=== PATIENT | female | born 1945 | race Caucasian/White ===

== ENCOUNTER 2016-08-22 11:58 | Emergency (ER) | payer MEDICARE | END 2016-08-22 13:38 | disposition home or self-care (01) | LOC: D.ER 11:58 | DX: S09.90XA Unspecified injury of head, initial encounter (principal); W01.0XXA Fall on same level from slipping, tripping and stumbling without subsequent striking against object, initial encounter; Y93.89 Activity, other specified; Y92.019 Unspecified place in single-family (private) house as the place of occurrence of the external cause; Z79.01 Long term (current) use of anticoagulants; Z86.718 Personal history of other venous thrombosis and embolism ==

== ENCOUNTER 2018-09-21 19:06 | Inpatient (IN) | payer MEDICARE ==
[~2018-09-21] VITALS: Ht 160 cm; Wt 71.2 kg
--- NOTE | ~2018-09-21 | HEMODYNAMI ---
PATIENT:CORTNEY TEIXEIRA MEDICAL RECORD: [id number] : [birth year] LOCATION:[facility] [address] [id number] ADMISSION DATE: 09/21/18 Generatedon:09/22/20183:37 Patient name: CORTNEY TEIXEIRA Patient #: [id number] SSN: : 1945 Date of study: 09/22/2018 Page: Of Hemodynamic Procedure Report Patient Data Patient Demographics Procedure consent was obtained First Name: CORTNEY Gender: Female Last Name: PUNEET : 1945 Patient #: [id number] Age: 73 year(s) Race: Unknown Additional ID: [id number] Contact details [address]: [address] [place] [address] State: [place] City: [place] Zip code: [address] Past Medical History Allergies: No known allergies Admission Admission Data Admission Date: 09/21/2018 Admission Time: 21:54 Room #: D.2311 Height (in.): 63 BSA: 1.8 (m2) Height (cm.): 160.02 BMI: 29.76 (kg/m2) Weight (lbs.): 168 Weight (kg.): 76.2 Procedure Procedure Types Cath Procedure Peripheral Cath Diagnostic Procedure Associate Faculty Peripheral Procedures Venography Extremity Left Lower Ext. Venagram Procedure Description Procedure Date Procedure Date: 09/22/2018 Procedure Start Time: 1:30 Procedure Staff Name Function Juan Jose Hernandez MD Performing Physician Evita Haynes RT Fisher Lampara Net Sierra Garcia RN Nurse Kamran Stallworth RT Scrub Procedure Data Cath Procedure Fluoroscopy Diagnostic fluoroscopy Total fluoroscopy Time: time: 20.8 min 20.8 min Diagnostic fluoroscopy Total fluoroscopy dose: dose: 1662 mGy 1662 mGy Contrast Material Contrast Material Type Amount (ml) Isovue 300 130 Procedure Medications Medication Administration Route Dosage Versed I.V. 1 mg Fentanyl I.V. 50 mcg Heparin Flush Bag added to field 2 bags (1000units/500ml NS) Lidocaine 1% added to field 20 Fentanyl I.V. 25 mcg Versed I.V. 0.5 mg Heparin Bolus 3000 units Versed I.V. 0.5 mg Fentanyl I.V. 25 mcg Versed I.V. 0.5 mg Fentanyl I.V. 25 mcg Heparin Bolus I.V. 1000 units Fentanyl I.V. 25 mcg Versed I.V. 0.5 mg Versed I.V. 0.5 mg Hemodynamics Rest BSA: 1.8 (m2) O2 Consumption: Estimated: 165.75 (ml/min) O2 Consumption indexed: Estimated:92.08 (ml/min/m) Heart Rate: 70 (bpm) Snapshots Pre Cath Intra NCS Post Cath Vital Signs Time Heart Resp SPO2 etCO2 NIBP (mmHg) Rhythm Pain Sedation Rate (ipm) (%) (mmHg) Status Level (bpm) 1:25:23 69 10 100 38.2 125/84(104) NSR 0 (11) 10(A) , No pain 1:29:35 77 39 97 20.2 115/66(84) NSR 0 (11) 8(A) , No pain 1:33:45 70 8 95 15 105/66(82) NSR 0 (11) 8(A) , No pain 1:37:49 78 15 92 29.2 107/71(83) NSR 0 (11) 8(A) , No pain 1:41:56 79 18 91 30 115/64(83) NSR 0 (11) 8(A) , No pain 1:46:04 76 16 98 32.9 124/74(99) NSR 0 (11) 8(A) , No pain 1:50:14 71 18 98 35.9 116/76(100) NSR 0 (11) 8(A) , No pain 1:54:22 72 18 96 36.7 116/70(86) NSR 0 (11) 8(A) , No pain 1:58:26 64 20 93 36 131/82(110) NSR 0 (11) 8(A) , No pain 2:02:38 64 18 95 36.7 137/77(107) NSR 0 (11) 8(A) , No pain 2:06:52 61 19 97 35.9 142/80(112) NSR 0 (11) 8(A) , No pain 2:11:08 56 19 96 35.2 140/81(109) NSR 0 (11) 8(A) , No pain 2:15:20 59 19 96 32.9 133/87(111) NSR 0 (11) 8(A) , No pain 2:19:38 66 20 92 30.7 99/63(84) NSR 0 (11) 8(A) , No pain 2:24:33 60 19 94 34.5 144/76(107) NSR 0 (11) 8(A) , No pain 2:28:49 58 20 96 31.5 154/82(117) NSR 0 (11) 8(A) , No pain 2:33:09 60 14 98 35.2 140/81(113) NSR 0 (11) 8(A) , No pain 2:37:23 57 16 97 37.4 133/81(108) NSR 0 (11) 8(A) , No pain 2:41:37 60 16 97 37.4 137/76(112) NSR 0 (11) 8(A) , No pain 2:45:53 60 15 95 39 129/73(105) NSR 0 (11) 8(A) , No pain 2:50:05 61 15 97 37.5 123/75(102) NSR 0 (11) 8(A) , No pain 2:54:06 58 18 95 36 116/70(101) NSR 0 (11) 8(A) , No pain 2:58:21 60 17 96 37.4 136/62(110) NSR 0 (11) 8(A) , No pain 3:03:17 60 15 97 35.2 203/183(187) NSR 0 (11) 8(A) , No pain 3:05:22 66 17 97 32.9 139/86(113) NSR 0 (11) 8(A) , No pain 3:09:40 62 17 99 32.9 122/68(106) NSR 0 (11) 8(A) , No pain 3:13:48 61 16 99 38.2 130/80(114) NSR 0 (11) 8(A) , No pain 3:17:58 60 17 99 33.7 145/85(115) NSR 0 (11) 8(A) , No pain 3:22:10 61 16 100 35.2 153/96(136) NSR 0 (11) 8(A) , No pain 3:26:26 62 15 100 34.4 156/87(131) NSR 0 (11) 8(A) , No pain 3:30:26 37.5 No Cuff NSR 0 (11) 8(A) , No pain 3:34:26 0 No Cuff NSR 0 (11) 8(A) , No pain Medications Time Medication Route Dose Verified Delivered Reason Notes Effect iveness by by 1:29:08 Versed I.V. 1 mg Juan Jose Sierra for BurdaJose RN sedation 1:29:21 Fentanyl I.V. 50 Juan Jose Sierra for mcg Jose Hernandez RN sedation 1:29:41 Heparin Flush added 2 Juan Jose Ingram used for Bag to bags Mary Hernandez MD procedure (1000units/500ml field DELGADO NS) 1:30:04 Lidocaine 1% added 20ml Juan Jose Ingram used for to vial Mary Hernandez MD procedure field DELGADO 1:49:43 Fentanyl I.V. 25 Juan Jose Sierra for mcg AshleeaJose RN sedation 1:49:54 Versed I.V. 0.5 Juan Jose Sierra for mg BurdaJose RN sedation 1:55:07 Heparin Bolus 3000 Juan Jose Sierra used for units Jose Hernandez RN procedure 2:19:50 Versed I.V. 0.5 Juan Jose Sierra for mg BurdaJose RN sedation 2:20:01 Fentanyl I.V. 25 Juan Jose Sierra for mcg AshleeaJose RN sedation 2:38:47 Versed I.V. 0.5 Juan Jose Sierra for mg BurdaJose RN sedation 2:38:57 Fentanyl I.V. 25 Juan Jose Sierra for mcg Burda, Jose RN sedation 2:55:57 Heparin Bolus I.V. 1000 Juan Jose Sierra used for units Jose Hernandez cement or concrete finishing supervisor 3:00:24 Fentanyl I.V. 25 Juan Jose Sierra for mcg Burda, Jose RN sedation 3:00:32 Versed I.V. 0.5 Juan Jose Sierra for mg Burda, Jose RN sedation 3:10:46 Versed I.V. 0.5 Juan Jose Sierra for mg Burda, Jose RN sedation MD Procedure Log Time Note 0:50:38 Patient Height : 63 inches 0:50:42 Patient Weight : 168 lbs 0:51:11 Use device set IR Diagnostic 0:52:09 DOC .035 wire (J55658) opened to sterile field. 0:52:10 Micropuncture VSI 4FR kit opened to sterile field. 0:52:11 SHEATH 5FR [place] (SQQ110) opened to sterile field. 0:52:12 Tegaderm 4 x 4 (1626W) opened to sterile field. 0:52:13 Sterile Angiographic Pack opened to sterile field. 0:52:14 Bag Decanter (2002S) opened to sterile field. 0:52:23 Time tracking: Call back (After hours or weekends) 0:52:46 Plan of Care:Hemodynamics will remain stable., Cardiac rhythm will remain stable., Comfort level will be maintained., Respiratory function will remain adequate., Patient/ family verbilizes understanding of procedure., Procedure tolerated without complication., Recovers from procedure without complications.. 0:53:28 Patient received from ICU to IR Alert and oriented. Tansferred to table in Prone position. 0:53:32 Signed procedure consent form obtained from patient. 0:53:34 Correct patient and procedure confirmed by team. 0:53:42 H&P Date Dictated: 09/22/2018 ER History on chart.. 0:53:43 Pre-procedure instructions explained to patient. 0:53:44 Pre-op teaching completed and patient verbalized understanding. 0:53:47 Family unavailable. 0:53:59 Patient NPO since Lunch. 0:54:10 Patient allergic to No known allergies 0:54:13 Is the patient allergic to Iodine/contrast media? No. 0:54:16 Is patient on blood thinner?Yes 0:54:21 ACC The patient was administered the following blood thiners within the last 24 hours: ACCHeparin 0:54:29 Patient diabetic? No. 0:54:32 0:54:32 ----Pre-sedation anethsthesia assessment.---- 0:54:36 Previous problem with sedation/anesthesia? No ? 0:54:38 Snore? Yes 0:54:40 Sleep apnea? No 0:54:45 Deviated septum? No 0:54:48 Opens mouth fully? Yes 0:54:51 Sticks out tongue? Yes 0:54:56 Airway obstruction? No ? 0:55:06 Dentures? No ? 0:55:09 0:55:20 Pre procedure: right dorsailis pedis pulse Doppler 0:55:32 Pre procedure: left dorsailis pedis pulse Doppler 0:55:37 Pre procedure: right posterior tibial pulse Doppler 0:55:42 Pre procedure: left posterior tibial pulse Doppler 0:55:57 IV patent on arrival in left hand with D5/.45%NaCl at O. 0:56:06 Popliteal region area was prepped with chlora-prep and draped in sterile fashion 0:56:09 1:24:28 ECG and BP/O2 sat monitors applied to patient. 1:24:29 Vital chart was started 1:24:38 Full Disclosure recording started 1:24:43 Baseline sample Acquired. 1:24:51 Physician arrived 1:24:52 --------ALL STOP TIME OUT------ 1:24:53 Final Timeout: patient, procedure, and site verified with staff and physician. All members of the team are in agreement. 1:25:30 Cordis 6Fr BRITE TIP 11cm sheath opened to sterile field. 1:29:08 Versed 1 mg I.V. was administered by Sierra Garcia RN; for sedation; 1:29:21 Fentanyl 50 mcg I.V. was administered by Sierra aGrcia RN; for sedation; 1:29:41 Heparin Flush Bag (1000units/500ml NS) 2 bags added to field was administered by Juan Jose Hernandez MD; used for procedure; 1:29:59 Fire Safety Assessment: A--An alcohol-based skin anteseptic being used preoperatively., C--Open oxygen or nitrous oxide is being used. 1:30:04 Lidocaine 1% 20ml vial added to field was administered by Juan Jose Hernandez MD; used for procedure; 1:30:06 Procedure started. 1:30:17 Local anesthetic to left popliteal vein with Lidocaine 1% by Juan Jose Hernandez MD.INITIAL ACCESS ONLY 1:30:22 Venous access obtained using ultrasound guidance. 1:39:25 GLIDE WIRE ANGLE 180cm (MX9651) opened to sterile field. 1:39:26 GLIDE CATHETER 5FR ANGLED 65cm (CG507) opened to sterile field. 1:42:25 GLIDE CATHETER 5FR ANGLED 100cm (CG508) opened to sterile field. 1:42:40 REYNOLDS 260 wire (M26623) opened to sterile field. 1:49:43 Fentanyl 25 mcg I.V. was administered by Sierra Garcia RN; for sedation; 1:49:54 Versed 0.5 mg I.V. was administered by Sierra Garcia RN; for sedation; 1:55:07 Heparin Bolus 3000 units was administered by Sierra Garcia RN; used for procedure; 1:58:51 ROADRUNNER .035 260 glide wire (S49827) opened to sterile field. 1:58:52 CXI Catheter 90cm (U79090) opened to sterile field. 1:59:27 Angiojet PROXI 6Fr 90CM thrombectomy catheter opened to sterile field. 2:19:50 Versed 0.5 mg I.V. was administered by Sierra Garcia RN; for sedation; 2:20:01 Fentanyl 25 mcg I.V. was administered by Sierra Garcia RN; for sedation; 2:26:47 INFLATOR BasixTOUCH (UM9507) opened to sterile field. 2:28:08 Inflate balloon Inflation number: 1 A Evercross 8 x 80 x 135 Balloon ([id number]) was prepped and advanced across the Undefined1 , then inflated. . 2:34:18 SHEATH 6FR Destination (RSR01) opened to sterile field. 2:37:50 Inflate balloon Inflation number: 1 A Evercross 10 x 60 x 135 Balloon ([id number]) was prepped and advanced across the Undefined2 , then inflated . 2:38:47 Versed 0.5 mg I.V. was administered by Sierra Garcia RN; for sedation; 2:38:57 Fentanyl 25 mcg I.V. was administered by Sierra Garcia RN; for sedation; 2:55:57 Heparin Bolus 1000 units I.V. was administered by Sierra Garcia RN; used for procedure; 2:57:39 Inflate balloon Inflation number: 2 A Evercross 12 x 40 x 135 ([id number]) was prepped and advanced across the Undefined2 , then inflated . 3:00:24 Fentanyl 25 mcg I.V. was administered by Sierra Garcia RN; for sedation; 3:00:32 Versed 0.5 mg I.V. was administered by Sierra Garcia RN; for sedation; 3:10:46 Versed 0.5 mg I.V. was administered by Sierra Garcia RN; for sedation; 3:19:04 Procedure ended.(Physican Out) 3:19:22 Fluoroscopy time 20.80 minutes. 3:19:28 Fluoroscopy dose: 1662 mGy 3:19:28 Flurop Dose total: 1662 3:20:19 Contrast amount:Isovue 300 130ml. 3:20:41 Post Procedure Pulses reassessed and unchanged 3:22:54 Report given to ICU. 3:36:54 Patient transfered to ICU with Bed. 3:37:23 Vital chart was stopped Intervention Summary Intervention Notes Time ActionType Lesion and Equipment Used Action# Pressure Duration Attributes 2:28:08 Inflate Undefined1 Evercross 8 x 6 1 0 00:00 balloon x 135 Balloon ([id number]) 2:37:50 Inflate Undefined2 Evercross 10 x 1 0 00:00 balloon 40 x 135 Balloon ([id number]) 2:57:39 Inflate Undefined2 Evercross 12 x 2 0 00:00 balloon 40 x 135 ([id number]) Device Usage Item Name Manufacture Quantity Catalog Number Hospital Part Current M inimal Lot# / Charge Number Stock Stock Serial# Code DOC .035 wire Cook Medical 1 [id number] 059678 893676 5 ([id number]) Micropuncture VSI VASCULAR 1 7266V 159404 857307 5 VSI 4FR kit SOLUTIONS SHEATH 5FR Terumo 1 AZZ715 607908 508511 972322 5 [place]len (VHE334) Tegaderm 4 x 4 3M 1 1626W 317340 077782 795133 5 (1626W) Sterile Cardinal 1 [id number] 156666 564837 5 Angiographic Health Pack Bag Decanter Microtek 1 2001S 714043 25453 359566 5 (2001S) cdream network Inc. Cordis 6Fr Cardinal 1 [id number] 678878 334526 5 BRITE TIP 11cm Health sheath GLIDE WIRE Terumo 1 JW0611 981911 184966 212878 5 ANGLE 180cm (MC7325) GLIDE CATHETER Terumo 1 CG507 963639 519679 5 5FR ANGLED 65cm (CG507) GLIDE CATHETER Terumo 1 CG508 645698 42301 694602 4 5FR ANGLED 100cm (CG508) REYNOLDS 260 wire [employer] 1 E43535 843899 37017 619309 5 (J95652) ROADRUNNER .035 [employer] 1 H32209 023519 459827 954585 5 1793841 260 glide wire (B31364) CXI Catheter [employer] 1 Z02949 197224 131129 477377 5 5257018 90cm (J28258) Angiojet PROXI [place] 1 852232-623 855133 647393 785295 5 6Fr 90CM Scientific thrombectomy catheter INFLATOR Merit 1 GP5081 508250 781685 945689 5 [employer] (KP2604) Evercross 8 x 6 Medtronic 1 [id number] 101736 091738 854715 5 x 135 Balloon ([id number]) SHEATH 6FR Terumo 1 RSR01 495492 53194 776234 5 Destination (RSR01) Evercross 10 x Medtronic 1 [id number] 477250 517316 343503 5 40 x 135 Balloon ([id number]) Evercross 12 x Medtronic 1 [id number] 288799 171921 860448 5 40 x 135 ([id number]) Signature Audit [place] Stage Time Signature Unsigned Intra-Procedure 09/22/2018 Evita Haynes 3:37:17 AM RT(R) [facility] [address] [place] [id number]
[2018-09-21 19:19] VITALS: BP 103/71
[2018-09-21] MEDS ORDERED: CARDIZEM60 MG PO (19:27)
[2018-09-21] MEDS ORDERED: ROBAXIN500 MG PO (19:28)
[2018-09-21] MEDS ORDERED: DICLOFENAC (19:28)
[2018-09-21] MEDS ORDERED: COUMADIN (19:29)
[2018-09-21 19:38] LABS: BASOPHILS 0.2 % (0-2); EOSINOPHILS 2.3 % (0-7); HEMATOCRIT 42.6 % (36.0-48.0); HEMOGLOBIN 14.1 g/dL (12-16); IMMATURE GRANULOCYTES 0.2 % (0-5); LYMPHOCYTES 25.6 % (15-50); MCH 28.7 pg (26.0-34.0); MCHC 33.1 g/dL (31.0-37.0); MCV 86.8 fL (80.0-100.0); MEAN PLATELET VOLUME 10.2 fL (7.4-10.4); MONOCYTES 7.7 % (2-11); RBC 4.91 10x6/uL (4.00-5.40); RDW 13.5 % (11.5-14.5); WBC 8.6 10x3/uL (4.8-10.8)
[2018-09-21 19:45] LABS: PLATELET COUNT 179 10x3/uL (130-400)
[2018-09-21 19:50] LABS: APTT 30.8 SECONDS (22.8-39.4); INR 1.27 (0.85-1.17); PROTIME 15.3 SECONDS (11.6-15.0)
[2018-09-21 19:57] LABS: ALBUMIN 3.8 g/dL (3.4-5.0); ALKALINE PHOSPHATASE 121 U/L (46-116); ALT (SGPT) 27 U/L (10-68); BILIRUBIN - TOTAL 0.36 mg/dL (0.2-1.3); CALC OSMOLALITY 282 mosm/kg (275-300); CALCIUM 9.1 mg/dL (8.5-10.1); CARBON DIOXIDE 27.3 mmol/L (21.0-32.0); CHLORIDE - SERUM 105 mmol/L (98-107); CREATININE - SERUM 0.6 mg/dL (0.6-1.3); GLUCOSE 116 mg/dL (74-106); POTASSIUM - SERUM 3.6 mmol/L (3.5-5.1); PROTEIN - SERUM 7.3 g/dL (6.4-8.2); SODIUM 141 mmol/L (136-145); UREA NITROGEN 14 mg/dL (7-18); eGFR NON AFRICAN AMERICAN > 90 mL/min (90-120)
--- NOTE | 2018-09-21 20:24 | NUR ---
PT C/O INCREASING PAIN 10/10 SCALE AT THIS TIME. EDP NOTIFIED. NO NEW ORDERS AT THIS TIME.
[2018-09-21 20:46] VITALS: BP 107/76
[2018-09-21 21:30] VITALS: BP 77/51
[2018-09-21 22:35] VITALS: BP 126/90
[2018-09-21] MEDS ORDERED: ENBREL25 MG/0.5 SQ (22:49)
[2018-09-21] MEDS ORDERED: VOLTAREN75 MG PO (22:51)
[2018-09-21 23:00] VITALS: BP 97/62
[2018-09-21 23:14] VITALS: BP 97/62; BMI 29.9
[2018-09-22] VITALS (20 sets, daily range): BP systolic 92–164; BP diastolic 39–99; BMI 27.8
--- NOTE | 2018-09-22 00:51 | NUR ---
PT TO UNIT FROM ER AT 2235, PLACED ON MONITOR. PT CALM AT TIME OF ASSESSMENT. HISTORY RECEIVED. FAMILY IN TO SEE PT AND TOOK PT BELONGINGS EXCEPT CELL PHONE. CLINICAL RADIOLOGIST IN TO SEE PT. DR YOUSSEF NOTIFIED OF CONSULT AND SPOKE WITH CLINICAL RADIOLOGIST ABOUT LEFT LEG SWELLING AND DISCOLORATION. PT PLACED NPO AND STATES IT HAS WAS ABOUT 1500 T0 1530 SINCE LAST EATING. IR OUT WITH PT AT 0050. CONSENTS SIGNED AND PT CALLED FAMILY TO NOTIFY THEM.
--- NOTE | 2018-09-22 04:00 | NUR ---
PT RETURNED FROM IR AWAKE AND ALERT. COLOR TO LEFT LOWER EXTREMITY WNL, PEDAL PULSE IMPROVE WITH DOPPLER, REMAINS COOL TO TOUCH. RECEIVING NS AT 75ML/HR. HEPERIN ON HOLD UNTIL 529. PT EDUCATED TO KEEP AFFECTED LEG STRAIGHT. DRESSING TO LEFT POPLITEAL C/D/I. VSS. CALL LIGHT IN REACH. WILL CONTINUE TO OBSERVE.
--- NOTE | 2018-09-22 05:31 | NUR ---
HEPARIN RESTARTED PER ORDER. LEG REMAINS STRAIGHT, WITH DRESSING TO POPLITEAL C/D/I, NO REDNESS NOTED AROUND SITE. PT COMPLAINED OF NAUSEA WITH PRN ZOFRAN GIVEN PER APR. WILL CONTINUE TO OBSERVE.
[2018-09-22 06:22] LABS: INR 1.42 (0.85-1.17); PROTIME 16.8 SECONDS (11.6-15.0)
[2018-09-22 06:44] LABS: APTT 50.9 SECONDS (22.8-39.4)
--- NOTE | 2018-09-22 07:00 | NUR ---
RECEIVED BEDSIDE REPORT ON PATIENT, AND ASSUMED CARE OF PATIENT. PATIENT ALERT AND ORIENTED X 4, VSS. IV HEPARIN GTT INFUSING AT 13 UNITS/HR AND NS INFUSING AT 75 CC/HR TO LEFT HAND 20 GA IV WITH NO S/S OF INFILTRATION. PATIENT LEFT LOWER EXTREMITY WARM TO TOUCH, PINK, AND WITH POSTIVE DOPPLER SIGNAL TO PT AND DP PULSES.
[2018-09-22 07:24] LABS: BASOPHILS 0.2 % (0-2); EOSINOPHILS 0 % (0-7); HEMATOCRIT 37.4 % (36.0-48.0); IMMATURE GRANULOCYTES 0.2 % (0-5); LYMPHOCYTES 7.1 % (15-50); MCH 30.2 pg (26.0-34.0); MCHC 34.8 g/dL (31.0-37.0); MCV 86.8 fL (80.0-100.0); MEAN PLATELET VOLUME 10.4 fL (7.4-10.4); NEUTROPHILS 83.5 % (40-80); RBC 4.31 10x6/uL (4.00-5.40); RDW 13.6 % (11.5-14.5)
[2018-09-22 07:26] LABS: PLATELET COUNT 132 10x3/uL (130-400)
--- NOTE | 2018-09-22 08:14 | NUR ---
PATIENT C/O NAUSEA, ZOFRAN 4MG IVP GIVEN PER ORDER.
--- NOTE | 2018-09-22 09:12 | NUR ---
PATIENT WITH NO RELIEF OF NAUSEA WITH ZOFRAN, DR. CEDILLO VIA ANSWERING SERVICE, SPOKE TO DR. MARTINEZ WHO ADVISED TO START A ZOFRAN GTT.
[2018-09-22 09:20] LABS: CALC OSMOLALITY 286 mosm/kg (275-300); CALCIUM 8.5 mg/dL (8.5-10.1); CARBON DIOXIDE 27.9 mmol/L (21.0-32.0); CHLORIDE - SERUM 106 mmol/L (98-107); CREATININE - SERUM 0.6 mg/dL (0.6-1.3); POTASSIUM - SERUM 4.1 mmol/L (3.5-5.1); SODIUM 141 mmol/L (136-145); UREA NITROGEN 22 mg/dL (7-18); eGFR NON AFRICAN AMERICAN > 90 mL/min (90-120)
[2018-09-22 09:23] LABS: GLUCOSE 147 mg/dL (74-106)
--- NOTE | 2018-09-22 09:50 | NUR ---
IV 22 GA STARTED TO RIGHT HAND, HEPARIN GTT MOVED TO INFUSE TO RIGHT HAND IV.
--- NOTE | 2018-09-22 10:12 | NUR ---
DR. STARK UPDATED ON PATIENT. VSS. ZOFRAN GTT STARTED PER ORDER FOR NAUSEA.
--- NOTE | 2018-09-22 11:00 | NUR ---
PATIENT REASSESSMENT COMPLETED. VSS. PATIENT STATES THAT NAUSEA IS IMPROVED.
--- NOTE | 2018-09-22 11:54 | NUR ---
HEPARIN GTT D/C PER ORDER PATIENT TO BE ON LOVENOX AND COUMADIN.
--- NOTE | 2018-09-22 12:41 | NUR ---
PATIENT DECLINES LUNCH TRAY CLEAR LIQUIDS DUE TO NAUSEA.
--- NOTE | 2018-09-22 12:54 | NUR ---
PATIENTS LLE WARM TO TOUCH AND PALPALBLE +1 DP AND PT PULSES. VSS.
--- NOTE | 2018-09-22 13:53 | NUR ---
PATIENT CONTIUES TO C/O NAUSEA STATES ONLY SLIGHTLY BETTER ON ZOFRAN GTT. DR. CEDILLO. LLE WARM TO TOUCH WITH +1 DP AND PT PULSES. VSS.
--- NOTE | 2018-09-22 14:06 | NUR ---
SPOKE TO DR. MARTINEZ, PLATE SHOP HELPER DOCTOR, NOTIFIED OF CONTINUED NAUSEA, STATES SHE WILL CONTACT DR. STARK REGARDING ANY FURTHER ORDERS FOR PATIENTS NAUSEA.
--- NOTE | 2018-09-22 14:59 | NUR ---
REPORT CALLED TO KYLAH REYES. TRANSPORTED PATIENT VIA WHEEL CHAIR TO ROOM 1208.
--- NOTE | 2018-09-22 15:54 | NUR ---
PT RECIEVED FROM ICU VIA WHEELCHAIR. VSS AT THIS TIME. NO DISTRESS, PAIN, OR NAUSEA NOTED. RR EVEN AND UNLABORED. DENIES NEEDS AT THIS TIME. WILL CONTINUE TO MONITOR.
--- NOTE | 2018-09-22 19:00 | NUR ---
EVEING ROUNDS COMPLETE. VSS, NO SIGNS OF DISTRESS. PT C/O DRY NARES. OXIMIZER ADDED TO PTS NC WITH O2 AT 2L. PEDAL PULSES CHECKED, +1 BILAT. PT DENIES ANY PAIN AT THIS TIME. WILL CONT WITH POC.
--- NOTE | 2018-09-22 19:02 | MORECARE ---
CASE MANAGEMENT DISCHARGE SUMMARY PATIENT: CORTNEY TEIXEIRA UNIT: [id number] ADM DATE: 09/21/18 AGE: 73 : [birth year] SEX: F ROOM/BED: D.1208 AUTHOR: SCARLETTDOC PHYSICIAN: REFERRING PHYSICIAN: TARA STARK MD DATE OF SERVICE: 09/22/18 Discharge Plan Patient Name: CORTNEY TEIXEIRA Facility: [facility]:[place] : 1945 Planned Disposition: Home Anticipated Discharge Date: Discharge Date: Expected LOS: Initial Reviewer: [email or web address] Initial Review Date: 09/22/2018 Generated: 09/22/18 8:01 pm Comments DCP- Discharge Planning Updated by [email or web address]: Nathalie Brar on 09/22/18 5:[address] Patient Name: CORTNEY TEIXEIRA Admission Status: ER Accout number: [id number] Admission Date: 09-21-2018 : 1945 Admission Diagnosis: Attending: TARA STARK Current LOS: 1 Anticipated DC Date: Planned Disposition: Home Primary Insurance: MEDICARE A & B Discharge Planning Comments: CM met with patient at bedside after explaining CM role and obtaining verbal consent. Patient lives at home alone and plans to return there upon discharge. Patient feels this would be a safe discharge. CM discussed availability / needs of home health and medical equipment. Patient denies any discharge needs at this time. Patient states she will have her friend drive her home upon discharge. CM will continue to follow and assist as needed with discharge planning / needs. Director Hematology: Nathalie Brar DCPIA - Discharge Planning Initial Assessment Updated by [email or web address]: Nathalie Brar on 09/22/18 6:56 pm * Is the patient Alert and Oriented? Yes * How many steps to enter\exit or inside your home? 15 * PCP JOSÉ * Pharmacy [facility] * Preadmission Environment Home Alone * ADLs Independent * List name and contact numbers for known caregivers / representatives who currently or will assist patient after discharge: SOFI STEWART - [place] - [phone] * Verbal permission to speak to the caregivers and representatives has been obtained from the patient. N/A * Additional services required to return to the preadmission environment? No * Can the patient safely return to the preadmission environment? Yes * Has this patient been hospitalized within the prior 30 days at any hospital? No Patient Name: CORTNEY TEIXEIRA Page [id number] at 1902 All edits/amendments must be made on the electronic document DICTATION DATE: 09/22/181900 TRAILHEAD MAINTENANCE WORKER: SUSIE 09/22/181900 RPT#: [id number] DC DATE: STATUS: ADM IN [facility] [address] [place] [address] END OF REPORT
--- NOTE | 2018-09-22 23:44 | NUR ---
PT BP 93/39, INCREASED NS FROM 75 ML/HR TO 125 ML/HR. WILL RECHECK BP IN 30 MINUTES.
--- NOTE | 2018-09-23 01:15 | NUR ---
PT BP 80/32. SPOKE WITH ANIYAH CRUZ ON TELEPHONE, WILL GIVE 500ML BOLUS OF NS, THEN CHANGE PT TO 1/2 NS AT 100 ML/HR X1. WILL MONITOR BP Q 15 FOR 1 HOUR. PT DENIES ANY PAIN AT THIS TIME. CONT WITH POC.
--- NOTE | 2018-09-23 01:36 | NUR ---
PT BP IS 76/36 IN L ARM, AFTER 500ML NS FLUID BOLUS. BP IN RLE IS 122/54. 1/2 NS STARTED IN R HAND AT 100 ML/HR. WILL CONTINUE TO MONITOR BP. PT DENIES ANY PAIN OR NEEDS AT THIS TIME. CONT WITH POC.
--- NOTE | 2018-09-23 03:00 | NUR ---
PT BP IS 95/44 AT THIS TIME. WILL CONT TO MONITOR BP. CONT WITH POC.
[2018-09-23 04:38] VITALS: BP 111/51
--- NOTE | 2018-09-23 04:41 | NUR ---
PT ASLEEP IN BED, BP IN L ARM 111/51. NO C/O PAIN AT THIS TIME. NO SIGNS OF DISTRESS. WILL CONT WITH POC.
[2018-09-23 07:37] LABS: LYMPHOCYTES 32.7 % (15-50); MCH 29.3 pg (26.0-34.0); MCHC 33.6 g/dL (31.0-37.0); MCV 87.3 fL (80.0-100.0); MEAN PLATELET VOLUME 10.1 fL (7.4-10.4); PLATELET COUNT 119 10x3/uL (130-400); RDW 13.2 % (11.5-14.5)
--- NOTE | 2018-09-23 07:38 | NUR ---
ALERT AND ORIENTED. NO C/O PAIN. CASSIUS SCDS ON. RESP EVEN AND UNLAOBRED. CL IN REACH.
[2018-09-23 07:44] LABS: HEMATOCRIT 29.5 % (36.0-48.0); HEMOGLOBIN 9.9 g/dL (12-16); RBC 3.38 10x6/uL (4.00-5.40)
[2018-09-23 07:52] LABS: ALKALINE PHOSPHATASE 76 U/L (46-116); ALT (SGPT) 22 U/L (10-68); BILIRUBIN - TOTAL 0.51 mg/dL (0.2-1.3); CARBON DIOXIDE 27.1 mmol/L (21.0-32.0); CHLORIDE - SERUM 107 mmol/L (98-107); CREATININE - SERUM 0.5 mg/dL (0.6-1.3); MAGNESIUM - SERUM 1.9 mg/dL (1.8-2.4); PHOSPHOROUS 3.4 mg/dL (2.5-4.9); SODIUM 141 mmol/L (136-145); eGFR NON AFRICAN AMERICAN > 90 mL/min (90-120)
[2018-09-23 07:53] LABS: CALC OSMOLALITY 280 mosm/kg (275-300); GLUCOSE 84 mg/dL (74-106); INR 1.57 (0.85-1.17); POTASSIUM - SERUM 3.2 mmol/L (3.5-5.1); PROTIME 18.2 SECONDS (11.6-15.0); UREA NITROGEN 16 mg/dL (7-18)
[2018-09-23 07:54] LABS: ALBUMIN 2.7 g/dL (3.4-5.0); PROTEIN - SERUM 5.2 g/dL (6.4-8.2)
[2018-09-23 08:13] VITALS: BP 90/40
--- NOTE | 2018-09-23 12:49 | NUR ---
ALERT AND ORIENTED. NO CL PAIN. CASSIUS SCDS ON. CASSIUS LE PULSES WEAK. CL IN REACH.
[2018-09-23 13:14] VITALS: BP 108/56
--- NOTE | 2018-09-23 15:33 | NUR ---
NO CHANGE IN ASSESSMENT. RESP EVEN AND UNLABORED. NO C/O PAIN AT THIS TIME. CL IN REACH.
[2018-09-23 16:07] VITALS: BP 96/42
[2018-09-23 16:29] VITALS: BP 143/57
--- NOTE | 2018-09-23 18:45 | NUR ---
EVENING ROUNDS COMPLETE, PT LAYING IN BED. NO SIGNS OF DISTRESS, PT DENIES ANY PAIN AT THIS TIME. PEDAL PULSES PALP, +1 BILAT. CONT WITH POC.
[2018-09-23 20:00] VITALS: BP 82/41
--- NOTE | 2018-09-23 20:41 | NUR ---
CALLED ANIYAH CRUZ FOR BP OF 84/41, TO HOLD THE 2100 CARDIZEM. STAT ORDER FOR H&H AND K+. ATTEMPTED TO CALL LAB X2 WITH NO ANSWER.
[2018-09-23 23:18] LABS: HEMATOCRIT 28.8 % (36.0-48.0); HEMOGLOBIN 9.3 g/dL (12-16)
[2018-09-24 00:11] VITALS: BP 123/61
--- NOTE | 2018-09-24 00:39 | NUR ---
PT LAYING IN BED, NO SIGNS OF DISTRESS. PT DENIES ANY PAIN AT THIS TIME.
[2018-09-24 03:56] VITALS: BP 103/46
[2018-09-24 06:47] LABS: BASOPHILS 0.4 % (0-2); EOSINOPHILS 2.5 % (0-7); HEMATOCRIT 28.7 % (36.0-48.0); HEMOGLOBIN 9.5 g/dL (12-16); IMMATURE GRANULOCYTES 0.2 % (0-5); LYMPHOCYTES 41.3 % (15-50); MCH 28.9 pg (26.0-34.0); MCHC 33.1 g/dL (31.0-37.0); MCV 87.2 fL (80.0-100.0); MEAN PLATELET VOLUME 10.4 fL (7.4-10.4); MONOCYTES 9.5 % (2-11); NEUTROPHILS 46.1 % (40-80); PLATELET COUNT 118 10x3/uL (130-400); RBC 3.29 10x6/uL (4.00-5.40); RDW 13.8 % (11.5-14.5); WBC 5.3 10x3/uL (4.8-10.8)
[2018-09-24 07:00] VITALS: BP 102/50
[2018-09-24 07:00] LABS: PROTIME 21.4 SECONDS (11.6-15.0)
[2018-09-24 07:14] LABS: ALBUMIN 2.6 g/dL (3.4-5.0); ALKALINE PHOSPHATASE 69 U/L (46-116); ALT (SGPT) 20 U/L (10-68); BILIRUBIN - TOTAL 0.36 mg/dL (0.2-1.3); CALCIUM 8.3 mg/dL (8.5-10.1); CARBON DIOXIDE 29.1 mmol/L (21.0-32.0); CHLORIDE - SERUM 110 mmol/L (98-107); CREATININE - SERUM 0.4 mg/dL (0.6-1.3); GLUCOSE 83 mg/dL (74-106); MAGNESIUM - SERUM 1.9 mg/dL (1.8-2.4); PHOSPHOROUS 3.3 mg/dL (2.5-4.9); PROTEIN - SERUM 5.1 g/dL (6.4-8.2); SODIUM 144 mmol/L (136-145); eGFR NON AFRICAN AMERICAN > 90 mL/min (90-120)
[2018-09-24 07:21] LABS: CALC OSMOLALITY 284 mosm/kg (275-300); POTASSIUM - SERUM 3.9 mmol/L (3.5-5.1); UREA NITROGEN 10 mg/dL (7-18)
[2018-09-24 07:23] LABS: INR 1.93 (0.85-1.17)
--- NOTE | 2018-09-24 07:43 | NUR ---
PT RESTING IN BED, SHIFT ASSESSMENT PERFORMED. SCDS IN PLACE. VSS AND WNL. DENIES ANY NEEDS AT THIS TIME, WILL CONT TO FOLLOW POC
--- NOTE | 2018-09-24 11:41 | NUR ---
PT RESTING IN BED, DENIES ANY NEEDS AT THIS TIME. WILL CONT TO FOLLOW POC
[2018-09-24 12:41] VITALS: Ht 160 cm; Wt 71.2 kg
[2018-09-24] MEDS ORDERED: COUMADIN5 MG PO (15:00)
--- NOTE | 2018-09-24 15:28 | NUR ---
DISCHARGE INSTRUCTIONS REVIEWED WITH PT AND ALL QUESTIONS ANSWERED, PIV REMOVED WITH CATHETER TIP INTACT. PT WAITING FOR RIDE TO GET HERE
--- NOTE | 2018-09-24 17:08 | NUR ---
ASSISTED PT TO FRONT OF HOSPITAL VIA WHEELCHAIR WHERE SHE LEFT WITH HER SON
--- NOTE | 2018-09-25 22:24 | MORECARE ---
CASE MANAGEMENT DISCHARGE SUMMARY PATIENT: CORTNEY TEIXEIRA UNIT: [id number] ADM DATE: 09/21/18 AGE: 73 : 49 SEX: F ROOM/BED: D.1208 AUTHOR: SCARLETTDOC PHYSICIAN: REFERRING PHYSICIAN: TARA STARK MD DATE OF SERVICE: 09/25/18 Discharge Plan Patient Name: CORTNEY TEIXEIRA Facility: [facility]:[place] : 1945 Planned Disposition: Home Anticipated Discharge Date: Discharge Date: 09/24/2018 Expected LOS: Initial Reviewer: [email or web address] Initial Review Date: 09/22/2018 Generated: 09/25/18 11:23 pm DCP- Discharge Planning Updated by [email or web address]: Nathalie Brar on 09/22/18 5:[address] Patient Name: CORTNEY TEIXEIRA Admission Status: ER Accout number: [id number] Admission Date: 09-21-2018 : 1945 Admission Diagnosis: Attending: TARA STARK Current LOS: 1 Anticipated DC Date: Planned Disposition: Home Primary Insurance: MEDICARE A & B Discharge Planning Comments: CM met with patient at bedside after explaining CM role and obtaining verbal consent. Patient lives at home alone and plans to return there upon discharge. Patient feels this would be a safe discharge. CM discussed availability / needs of home health and medical equipment. Patient denies any discharge needs at this time. Patient states she will have her friend drive her home upon discharge. CM will continue to follow and assist as needed with discharge planning / needs. Evaluation Assistant: Nathalie Brar DCPIA - Discharge Planning Initial Assessment Updated by [email or web address]: Nathalie Brar on 09/22/18 6:56 pm * Is the patient Alert and Oriented? Yes * How many steps to enter\exit or inside your home? 15 * PCP KUMAR * Pharmacy [facility] * Preadmission Environment Home Alone * ADLs Independent * List name and contact numbers for known caregivers / representatives who currently or will assist patient after discharge: DJ PAT - FRIEND - [phone] * Verbal permission to speak to the caregivers and representatives has been obtained from the patient. N/A * Additional services required to return to the preadmission environment? No * Can the patient safely return to the preadmission environment? Yes * Has this patient been hospitalized within the prior 30 days at any hospital? No Coverage Notice Reviewer: [email or web address] Brar Notice Issued Date-Time: 09/24/2018 14:20 Notice Type: IM Discharge Notice Notice Delivered To: Patient Relationship to Patient: Self Securities Sales Associate Name: Delivery Method: HAND - Hand Delivered Zohreh Days: Prior Verbal Notification: Recipient Understood Notice: Yes Recipient Signature: Yes Med Rec Note Co-signed by Attending: Coverage Notice Comment: Reviewer: [id number] Brar Notice Issued Date-Time: 09/24/2018 14:20 Notice Type: Patient Choice Letter Notice Delivered To: Patient Relationship to Patient: Self Securities Sales Associate Name: Delivery Method: HAND - Hand Delivered Zohreh Days: Prior Verbal Notification: Recipient Understood Notice: Yes Recipient Signature: Yes Med Rec Note Co-signed by Attending: Coverage Notice Comment: Last DP export: 09/22/18 6:02 pm Patient Name: CORTNEY TEIXEIRA Page [id number] at 2224 All edits/amendments must be made on the electronic document DICTATION DATE: 09/25/182222 AUTO PAINTER: SUSIE 09/25/182222 RPT#: [id number] DC DATE:09/24/18 STATUS: DIS IN [facility] [address] [place] [address] END OF REPORT
== END 2018-09-24 17:09 | disposition home or self-care (01) | DRG 272 ==
LOC: D.ER 19:06 → D.ICU 21:54 → D.M3 09-22 15:52
PROVIDERS: Family Medicine; General Practice; ADMIT Family Medicine; ATTEND Family Medicine
PROC: 3E04317 Introduction of Other Thrombolytic into Central Vein, Percutaneous Approach (ICD-10-PCS; 2018-09-22)
PROC: 06CN3ZZ Extirpation of Matter from Left Femoral Vein, Percutaneous Approach (ICD-10-PCS; principal; 2018-09-22 01:35)
DX: I82.4Z2 Acute embolism and thrombosis of unspecified deep veins of left distal lower extremity (principal); I70.212 Atherosclerosis of native arteries of extremities with intermittent claudication, left leg; M06.9 Rheumatoid arthritis, unspecified